=== PATIENT | female | born 1950 ===

== ENCOUNTER 2018-10-14 06:06 | Emergency (ER) | payer OTHER ==
[~2018-10-14] VITALS: Ht 154.9 cm; Wt 76.7 kg
[~2018-10-14 06:06] MED LIST: AVALIDE 300-12.1 TAB; BABY ASPIRIN81 MG; CARDIZEM LA360 MG; CLONAZEPAM1 MG; CYMBALTA60 MG; INTESTINEX1 CA1 PO; LYRICA225 MG; PRILOSEC40 MG; SIMVASTATIN10 MG; SYNTHROID137 MCG
[2018-10-14] MEDS ORDERED: CRESTOR20 MG (06:37)
[2018-10-14] MEDS ORDERED: KCL 10 MEQ20 MEQ/102 (06:40)
== END 2018-10-14 12:56 | disposition home or self-care (01) ==
LOC: ER 06:06
DX: K57.30 Diverticulosis of large intestine without perforation or abscess without bleeding (principal); R10.32 Left lower quadrant pain; N39.0 Urinary tract infection, site not specified; B96.29 Other Escherichia coli [E. coli] as the cause of diseases classified elsewhere